=== PATIENT | male | born 1985 | race Caucasian/White ===

== ENCOUNTER 2021-09-06 03:14 | Inpatient (IN) | payer MEDICAID, SELFPAY ==
[2021-09-06 03:21] VITALS: BP 164/88; PULSE 96; RESP 16; TEMP 36.6; O2SAT 97; BMI 25.7
--- NOTE | 2021-09-06 03:37 | PC.NURSE ---
pt has hx of IV meth use
--- NOTE | 2021-09-06 03:48 | W.ED.PSYCHS ---
HPI - Psych General: Chief Complaint: Psychiatric Symptoms Stated Complaint: SI Time Seen by Provider: 09/06/21 03:20 Source: patient Mode of arrival: ambulatory Limitations: no limitations History of Present Illness: HPI Narrative: 36-year-old male states has been severely depressed. He states that he has lost everything. He is lost his job kids in house and he is relapsed on methamphetamine abuse. He states that today he attempted to kill himself by hanging and now he wants to get help she realized that he does not want to kill himself. Patient's been cooperative here denies any worsening proving factors not on any meds currently. Associated symptoms: Reports depression and suicidal ideation Review of Systems Const: Denies: fever(s), chills, body aches or change in appetite Eyes: Denies: blurry vision or eye discomfort ENMT: Denies: throat pain or dental pain Card: Denies: chest pain Resp: Denies: dyspnea GI: Denies: abdominal pain, nausea, vomiting or diarrhea : Denies: dysuria Musc: Denies: neck pain or back pain Skin/Breast: Denies: rash Neuro: Denies: headache(s) Psych: Reports: depression and suicidal ideation Mateo/Lymph: Denies: easy bruising All/Imm: Denies: urticaria Physical Exam Const: COMMON NORMALS: no acute distress, patient oriented x3 and healthy appearing HENMT: COMMON NORMALS: normocephalic and atraumatic HEAD & SCALP: normocephalic and atraumatic Eye: COMMON NORMALS: Equal, round and reactive pupils present and EOMs intact bilaterally PUPIL: Yes Equal, round and reactive pupils present Neck/C-Spine: COMMON NORMALS: full ROM and supple OTHER: No ligature medrano Chest: COMMONS NORMALS: normal inspection of the chest and normal palpation of entire chest wall Resp: COMMON NORMALS: normal respiratory effort, No retractions, No use of accessory muscles and clear to auscultation bilaterally AUSCULTATION: clear to auscultation bilaterally Cardio: COMMON NORMALS: regular rate, regular rhythm and No murmurs present (Cardio) RATE: regular rate RHYTHM: regular rhythm GI: COMMON NORMALS: Normal to inspection, nondistended, normoactive bowel sounds present, Soft to palpation, non-tender and no masses PALPATION: Yes Soft to palpation Extremity: COMMON NORMALS: normal to inspection and full ROM Neuro: COMMON NORMALS: patient oriented x3, moves all extremities and no focal motor deficits Psych: COMMON NORMALS: mental status grossly normal, Normal thought process present and cooperative MOOD & AFFECT: Yes depressed mood and Yes Flat affect present THOUGHT PROCESS: Normal thought process present THOUGHT CONTENT: Yes Suicidality present Skin: COMMON NORMALS: no rashes or lesions noted and no wounds GENERAL SKIN EXAM: no rashes or lesions noted Course Vital Signs: Vital signs: Vital Signs Temperature 98 F 09/06/21 03:21 Pulse Rate 96 09/06/21 03:21 Respiratory Rate 16 09/06/21 03:21 Blood Pressure 164/88 09/06/21 03:21 Pulse Oximetry 97 09/06/21 03:21 MDM - Psych MDM Narrative: Medical decision making narrative: Patient presents here with suicidal ideations along with suicide attempt by hanging patient is medically cleared no signs of any neck injuries no ligature medrano spoke to psychiatrist and will admit to psychiatric unit. Lab Data: Labs: Lab Results 09/06/21 09/06/21 09/06/21 03:45 03:45 03:55 WBC 7.0 10^3/uL 10^3/ uL (4.0-10.0) RBC 5.51 10^6/uL H 10 ^6/uL (4.1-5.3) Hgb 15.6 g/dL g/dL (11.7-16.6) Hct 46.7 % % (42.0-52.0) MCV 84.8 fl fl (80-94) MCH 28.3 pg pg (28.0-34.0) MCHC 33.4 g/dL g/dL (30.0-36.0) RDW 12.4 % % (12.1-15.1) Plt Count 347 10^3/cmm 10^3 /cmm (130-400) MPV 9.6 fL fL (7.4-10.4) Neut % (Auto) 50.9 % % Lymph % (Auto) 36.1 % % Drew % (Auto) 8.9 % % Eos % (Auto) 2.8 % % Baso % (Auto) 0.9 % % Neut # (Auto) 3.58 10^3/uL 10^3 /uL (1.8-7.7) Lymph # (Auto) 2.5 10^3/uL 10^3/ uL (0.8-4.8) Drew # (Auto) 0.6 10^3/uL 10^3/ uL (0.2-0.9) Eos # (Auto) 0.2 10^3/uL 10^3/ uL (0.0-0.8) Baso # (Auto) 0.1 10^3/uL 10^3/ uL (0.0-0.1) Nucleated RBC % (a uto) 0 % % Nucleated RBCs # 0.0 /100WBC /100W BC Sodium 139 mmol/L mmol/L (136-145) Potassium 4.1 mmol/L mmol/L (3.5-5.1) Chloride 103 mmol/L mmol/L (98-107) Carbon Dioxide 25 mmol/L mmol/L (22-29) Anion Gap 15.1 (5-19) BUN 9 mg/dL mg/dL (6-20) Creatinine 0.8 mg/dL mg/dL (0.7-1.2) GFR Calculation 110.0 mL/min mL/m in (90-130) Glucose 87 mg/dL mg/dL (65-115) Calculated Osmolal ity 286 mOsm/kg mOsm/ kg (285-295) Calcium 8.6 mg/dL mg/dL (8.5-10.5) Total Bilirubin 0.3 mg/dL mg/dL (0.15-1.2) AST 20 U/L U/L (0-40) ALT 27 U/L U/L (0-41) Alkaline Phosphata se 62 IU/L IU/L (40-130) Total Protein 7.4 g/dL g/dL (6.6-8.7) Albumin 4.4 g/dL g/dL (3.5-5.2) Globulin 3.0 g/dL g/dL (1.3-4.6) Salicylates < 0.3 mg/dL L mg/ dL (3-10) Urine Opiates Scre en Negative ng/mL ng /mL (Negative) Acetaminophen < 5.0 ug/mL L ug/ mL (10-30) Ur Barbiturates Sc reen Negative ng/mL ng /mL (Negative) Ur Phencyclidine S crn Negative ng/mL ng /mL (Negative) Ur Amphetamines Sc reen Positive ng/mL H ng/mL (Negative) U Benzodiazepines Scrn Negative ng/mL ng /mL (Negative) Urine Cocaine Scre en Negative ng/mL ng /mL (Negative) U Marijuana (THC) Screen Negative ng/mL ng /mL (Negative) Ethyl Alcohol < 10 mg/dL mg/dL (0-10) Discharge Plan Discharge Patient Disposition: Admitted As Inpatient Clinical Impression: Suicidal ideation, Methamphetamine abuse Condition: Stable Coding Level of Care Code ED Engineering Documentation Specialist for Coco Fwd Exam Comprehensive
[2021-09-06 03:55] LABS: Basophils # 0.1 10^3/uL (0.0-0.1); Basophils % 0.9 %; Eosinophils # 0.2 10^3/uL (0.0-0.8); Eosinophils % 2.8 %; Hematocrit 46.7 % (42.0-52.0); Hemoglobin 15.6 g/dL (11.7-16.6); Lymphocytes # 2.5 10^3/uL (0.8-4.8); Lymphocytes % 36.1 %; Mean Corpuscular HGB Conc 33.4 g/dL (30.0-36.0); Mean Corpuscular Hemoglobin 28.3 pg (28.0-34.0); Mean Corpuscular Volume 84.8 fl (80-94); Mean Platelet Volume 9.6 fL (7.4-10.4); Monocytes # 0.6 10^3/uL (0.2-0.9); Monocytes % 8.9 %; Neutrophils # 3.58 10^3/uL (1.8-7.7); Neutrophils % 50.9 %; Nucleated Red Blood Cells % 0 %; Platelet Count 347 10^3/cmm (130-400); Red Blood Count 5.51 10^6/uL (4.1-5.3); Red Cell Distribution Width 12.4 % (12.1-15.1)
[2021-09-06] MEDS: LORazepam 2 mg Tablet PO (03:59)
[2021-09-06 04:16] LABS: Amphetamines Screen Urine Positive (Negative); Barbiturates Screen Urine Negative (Negative); Benzodiazepines Screen Urine Negative (Negative); Cocaine Screen Urine Negative (Negative); Opiate Screen Urine Negative (Negative); PCP Screen Urine Negative (Negative); THC Screen Urine Negative (Negative)
[2021-09-06 04:20] LABS: Alanine Aminotransferase 27 U/L (0-41); Albumin Level 4.4 g/dL (3.5-5.2); Alkaline Phosphatase 62 IU/L (40-130); Anion Gap 15.1 (5-19); Aspartate Amino Transferase 20 U/L (0-40); Blood Urea Nitrogen 9 mg/dL (6-20); Calcium 8.6 mg/dL (8.5-10.5); Carbon Dioxide 25 mmol/L (22-29); Chloride 103 mmol/L (98-107); Creatinine Clr Calc Pharmacy 156.0548; Glucose 87 mg/dL (65-115); Osmolality Calculated 286 mOsm/kg (285-295); Potassium 4.1 mmol/L (3.5-5.1); Sodium 139 mmol/L (136-145); Total Bilirubin 0.3 mg/dL (0.15-1.2); Total Protein 7.4 g/dL (6.6-8.7)
[2021-09-06 04:22] LABS: Acetaminophen < 5.0 ug/mL (10-30); Alcohol Level < 10 mg/dL (0-10); Salicylate < 0.3 mg/dL (3-10)
--- NOTE | 2021-09-06 07:50 | PC.NURSE ---
Recieved report from SONYA Bowers. Becky nichole pt, pt appears to be resting quietly, no needs stated
[2021-09-06 09:07] VITALS: BP 122/71; PULSE 105; RESP 17; TEMP 36.6; O2SAT 98
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
[2021-09-06 14:00] VITALS: BP 122/71; PULSE 105; RESP 17; TEMP 36.6; O2SAT 98
--- NOTE | 2021-09-06 18:14 | NUR.SHIFT ---
36-year-old male states has been severely depressed. He states that he has lost everything. He is lost his job kids in house and he is relapsed on methamphetamine abuse. He states that today he attempted to kill himself by hanging and now he wants to get help she realized that he does not want to kill himself. Patient's been cooperative here denies any worsening proving factors not on any meds currently. Upon arrival to unit, patient was cooperative with admission process, A/O x4, denies SI at this time & would like help with meth abuse wants to be my kids dad . Patient states mom dies of OD & 6 months later of ETOH, recently of uncle.
[2021-09-06 20:15] VITALS: RESP 15
[2021-09-07 06:00] VITALS: BP 116/78; PULSE 81; RESP 15; O2SAT 97
[2021-09-07] MEDS: OLANZapine 5 mg ODT PO (08:24)
[2021-09-07 13:15] LABS: Amphetamines Screen Urine Positive (Negative); Barbiturates Screen Urine Negative (Negative); Benzodiazepines Screen Urine Positive (Negative); Cocaine Screen Urine Negative (Negative); Opiate Screen Urine Negative (Negative); PCP Screen Urine Negative (Negative); THC Screen Urine Negative (Negative)
[2021-09-07 14:00] VITALS: BP 99/60; PULSE 76; RESP 18; TEMP 36.5; O2SAT 97
--- NOTE | 2021-09-07 18:34 | W.PM.NPUPNS ---
Subjective NPU Subjective: Interval history: Patient presents today reporting that he continues to be open and hopeful for rehab/mental health treatment and we discussed the risk benefits and alternatives of a trial of Prozac and he understood agreed proceed as is documented in this note. He was continuing to manage his suicidal thoughts and working with the social work team to look for possible treatment options. Mental Status Exam MSE Comments: This is an overweight white male, with hospital scrubs on, with limited grooming and eye contact. No abnormal movements, except for mild psychomotor retardation. Cooperative with exam in mild distress. Speech was decreased rate and volume. Mood described as ?depressed?; affect congruent. Thought process, organized. Thought content: patient reported that he felt less suicidal than he did yesterday and denied homicidal ideation, there were no delusions noted but he did report some paranoia, patient denied any auditory or visual hallucinations. Attention, concentration, and memory appear intact but none were formally tested. He is alert and oriented times three. Insight and judgment are limited. Impulse control is limited. Vitals/I&O/Wt Last Vital Signs Temp 98.6 F 09/07/21 19:49 Pulse 86 09/07/21 19:49 Resp 18 09/07/21 14:00 BP 117/66 09/07/21 19:49 Pulse Ox 95 09/07/21 19:49 Data NPU : 09/06/21 03:45 09/06/21 03:45 A&P Additional A&P Information (1) Suicidal ideation: (2) Methamphetamine abuse: (3) PTSD (post-traumatic stress disorder): (4) Major depressive disorder, recurrent: (5) Bereavement: Additional A&P Information This is a 36 -year-old, white male, with post-traumatic stress disorder, major depressive disorder, recurrent, bereavement, and methamphetamine use disorder, severe, who presents off of medication but open to restarting medication. 1. Continue current medication, except: 2. Start Prozac 20 mg po qam. 3. Start Trazodone 50 mg po qhs. 4. Encourage individual, group, and milieu therapy. 5. Continue q-15 minute checks for safety. 6. Recommend sober living treatment at the highest level of care to which the patient is willing to commit. Involuntary Hold Information 96 Hour Hold: 96 Hour Involuntary Admission: No Attestations NPU Medical Necessity Statement*: Inpatient hospitalization is medically necessary and the clinically appropriate intervention, at this time. We will monitor medications and make changes as indicated. Likely length of stay is 2-4 days. Coding Level of Care Code Acute Biomedical Engineering Technologist for Coco Kamara
[2021-09-07 19:49] VITALS: BP 117/66; PULSE 86; TEMP 37; O2SAT 95
[2021-09-07] MEDS: trazodone 50 mg Tablet PO (21:22)
[2021-09-07] MEDS: hyDROXYzine 25 mg Capsule 50 MG PO (21:22)
--- NOTE | 2021-09-07 21:58 | PC.NURSE ---
Patient c/o insomnia. Give hydroxizine 50 mg po and and trazadone 50 mg po.
[2021-09-08 03:25] VITALS: BP 118/68; PULSE 88; RESP 18; TEMP 37; O2SAT 97
[2021-09-08 06:00] VITALS: BP 111/72; PULSE 99; RESP 18; TEMP 37.2; O2SAT 97
[2021-09-08] MEDS: fluoxetine 20 mg Capsule PO (09:10)
[2021-09-08] MEDS: OLANZapine 5 mg ODT PO (11:48)
[2021-09-08 12:16] VITALS: BP 117/77; PULSE 107; RESP 18; O2SAT 95
[2021-09-08 12:23] LABS: Glucose Point of Care 97 mg/dL (70-110)
[2021-09-08 14:00] VITALS: BP 105/76; PULSE 89; RESP 16; TEMP 36.5; O2SAT 96
--- NOTE | 2021-09-08 18:29 | P.NPUPN_ITS ---
Subjective NPU Subjective: Interval history: Patient presents today reporting that he wants to get connected to addiction services and reports that the medications are helping his mental health aspect. His greatest concern is that he not be trapped in the hospital to the end of his 96-hour hold because of the holidays and weekend. We discussed working with the treatment team on Friday to make sure that he has appropriate services in place. Mental Status Exam MSE Comments: This is an overweight white male, with hospital scrubs on, with limited grooming and eye contact. No abnormal movements, except for mild psychomotor retardation. Cooperative with exam in mild distress. Speech was decreased rate and volume. Mood described as a little better; affect congruent. Thought process, organized. Thought content: patient denied suicidal or homicidal ideation, there were no delusions noted but he did report some paranoia, patient denied any auditory or visual hallucinations. Attention, concentration, and memory appear intact but none were formally tested. He is alert and oriented times three. Insight and judgment are limited, but improving. Impulse control is limited. Vitals/I&O/Wt Last Vital Signs Temp 98.0 F 09/08/21 21:21 Pulse 79 09/08/21 21:21 Resp 15 09/08/21 21:21 BP 106/62 09/08/21 21:21 Pulse Ox 96 09/08/21 21:21 Data NPU : 09/06/21 03:45 09/06/21 03:45 A&P Additional A&P Information (1) Suicidal ideation: (2) Methamphetamine abuse: (3) PTSD (post-traumatic stress disorder): (4) Major depressive disorder, recurrent: (5) Bereavement: Additional A&P Information This is a 36 -year-old, white male, with post-traumatic stress disorder, major depressive disorder, recurrent, bereavement, and methamphetamine use disorder, severe, who presents off of medication but open to restarting medication. 1. Continue current medication, except: 2. Started Prozac 20 mg po qam. 3. Started Trazodone 50 mg po qhs. 4. Encourage individual, group, and milieu therapy. 5. Continue q-15 minute checks for safety. 6. Recommend sober living treatment at the highest level of care to which the patient is willing to commit. Involuntary Hold Information 96 Hour Hold: 96 Hour Involuntary Admission: No Attestations NPU Medical Necessity Statement*: Inpatient hospitalization is medically necessary and the clinically appropriate intervention, at this time. We will monitor medications and make changes as indicated. Likely length of stay is 2-4 days. Coding Level of Care Code Acute Train Controller for Coco Kamara
[2021-09-08] MEDS: hyDROXYzine 25 mg Capsule 50 MG PO (20:45)
[2021-09-08] MEDS: trazodone 50 mg Tablet PO (20:45)
[2021-09-08 21:21] VITALS: BP 106/62; PULSE 79; RESP 15; TEMP 36.7; O2SAT 96
[2021-09-09 06:00] VITALS: BP 115/72; PULSE 66; RESP 18; TEMP 36.4; O2SAT 99
[2021-09-09] MEDS: fluoxetine 20 mg Capsule PO (08:15)
[2021-09-09 14:00] VITALS: BP 138/85; PULSE 83; RESP 17; TEMP 36.7; O2SAT 99
--- NOTE | 2021-09-09 15:31 | P.NPUPN_ITS ---
Subjective NPU Subjective: Interval history: Patient presents today reporting that he is feeling better and feeling the medication is working. He is working and talking to programs about him getting connected for his addiction treatment. We discussed the likelihood of discharge the next 48 hours. We agreed we work with the child protective services social worker in the morning to ensure appropriate follow-up is scheduled and consider discharge then. Mental Status Exam MSE Comments: This is an overweight white male, with hospital scrubs on, with appropriate grooming and eye contact. No abnormal movements. Cooperative with exam in no acute distress. Speech was more normal rate and volume. Mood described as better; affect congruent. Thought process, organized. Thought content: patient denied suicidal or homicidal ideation, there were no delusions reported or noted, patient denied any auditory or visual hallucinations. Attention, concentration, and memory appear intact but none were formally tested. He is alert and oriented times three. Insight and judgment are improving. Impulse control is limited. Vitals/I&O/Wt Last Vital Signs Temp 97.6 F 09/09/21 06:00 Pulse 66 09/09/21 06:00 Resp 18 09/09/21 06:00 BP 115/72 09/09/21 06:00 Pulse Ox 99 09/09/21 06:00 Data NPU : 09/06/21 03:45 09/06/21 03:45 A&P Additional A&P Information (1) Suicidal ideation: (2) Methamphetamine abuse: (3) PTSD (post-traumatic stress disorder): (4) Major depressive disorder, recurrent: (5) Bereavement: Additional A&P Information This is a 36 -year-old, white male, with post-traumatic stress disorder, major depressive disorder, recurrent, bereavement, and methamphetamine use disorder, severe, who presents off of medication but open to restarting medication. 1. Continue current medication, except: 2. Encourage individual, group, and milieu therapy. 3. Continue q-15 minute checks for safety. 4. Recommend sober living treatment at the highest level of care to which the patient is willing to commit. Involuntary Hold Information 96 Hour Hold: 96 Hour Involuntary Admission: No Attestations NPU Medical Necessity Statement*: Inpatient hospitalization is medically necessary and the clinically appropriate intervention, at this time. We will monitor medications and make changes as indicated. Likely length of stay is 1-3 days. Coding Level of Care Code Acute Drywall Hanger for Coco Kamara
[2021-09-09] MEDS: hyDROXYzine 25 mg Capsule 50 MG PO (17:27)
[2021-09-09] MEDS: OLANZapine 5 mg ODT PO (17:27)
[2021-09-09] MEDS: trazodone 50 mg Tablet PO (19:45)
[2021-09-09 20:07] VITALS: BP 103/63; PULSE 90; RESP 15; TEMP 36.8; O2SAT 95
--- NOTE | 2021-09-09 20:07 | PC.NURSE ---
orthostatic vitals (standing): T: 98.0 P: 110 R: 16 B/P: 111/78 O2: 97%
[2021-09-10 06:00] VITALS: BP 121/63; PULSE 81; RESP 16; TEMP 36.4; O2SAT 98
[2021-09-10] MEDS: fluoxetine 20 mg Capsule PO (09:35)
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
[2021-09-10 12:09] VITALS: BP 121/63; PULSE 81; RESP 16; TEMP 36.4; O2SAT 98
== END 2021-09-10 15:06 | disposition home or self-care (01) | DRG 885 ==
LOC: ER 04:21 → NP 05:40
PROVIDERS: Admitting Provider Psychiatry & Neurology Psychiatry; Emergency Provider Emergency Medicine; Visit Provider Psychiatry & Neurology Psychiatry
DX: F33.9 Major depressive disorder, recurrent, unspecified (principal); R45.851 Suicidal ideations; F15.20 Other stimulant dependence, uncomplicated; F41.9 Anxiety disorder, unspecified; F43.10 Post-traumatic stress disorder, unspecified; Z63.4 Disappearance and death of family member; Z91.51 Personal history of suicidal behavior; Z62.810 Personal history of physical and sexual abuse in childhood; Z62.811 Personal history of psychological abuse in childhood; Z65.3 Problems related to other legal circumstances; Z91.52 Personal history of nonsuicidal self-harm; Z81.8 Family history of other mental and behavioral disorders; Z81.4 Family history of other substance abuse and dependence
CPT/HCPCS: 36416; 80053; 80306; 80307; 82962; 85025; 97150; 97165; 99285

== ENCOUNTER → 2021-10-15 08:04 | Outpatient (BNVA) | payer OTHER, MEDICAID, SELFPAY | PROVIDERS: Visit Provider Counselor Professional | DX: F33.9 Major depressive disorder, recurrent, unspecified (principal); F43.10 Post-traumatic stress disorder, unspecified; Z63.4 Disappearance and death of family member | CPT/HCPCS: 90834 ==